=== PATIENT | female | born 1945 | race Caucasian/White ===

== ENCOUNTER 2017-02-10 05:55 | Emergency (ER) | payer MEDICARE, MEDICAID ==
[~2017-02-10 05:55] MED LIST: CALCIUM 600 +1 EAC3 PO; CELEBREX DPS200 MG PO; CIPRO DPS500 MG PO; CLARITIN DPS10 MG PO; EUCERIN CREME120 GM TP; FEOSOL-DPS325 MG PO; IMODIUM DPS2 MG PO; LIPITOR DPS20 MG PO; LOMOTIL-DPS1 TAB PO; NEURONTIN DPS300 MG PO; PRILOSEC DPS20 MG PO; PROAIR HFA8.5 GM IH; SINGULAIR10 MG PO; SYNTHROID75 MCG PO; THERA1 EACH PO; TYLENOL #3 DPS1 TAB PO; TYLENOL EXTRA500 M1 PO; VESICARE10 MG PO
--- NOTE | 2017-02-13 00:35 | ER ---
ADMIT: 02/10/2017 RM/LOC: ER [facility] MR#: [id number] [address] [id number] [place] [address] Emergency Room Report SEX: F AGE: 71 : 1945 DATE: 02/10/2017 HISTORY OF PRESENT ILLNESS: The patient is a 71-year-old female with a past medical history of DJD, diabetes, adrenal neoplasm, migraine, COPD, and hypothyroidism, who came to the ER with chief complaint of ground level fall. Allegedly, the patient states that she had chronic low back pain for years and also has DJD and she got recently the right knee steroid injection and this morning at 4:30 a.m., she was going to the bathroom with a walker when the knees gave away and she fell, the patient denies any head trauma, loss of conscious, the incident was witnessed. The patient states that after the incident the personal do not let her move around or stand up or walk. The patient denies any pain in the hip, knees, chest, abdomen, or pelvis, and complains of chronic low back pain, which has not changed in quality and quantity. The patient states she has had low back pain for more than 20 years. PHYSICAL EXAMINATION: VITAL SIGNS: In the ER, the patient was in no pain or distress as long as she was lying on the bed, blood pressure was 144/77, heart rate was 68, respiratory rate of 18, and temperature was 97.7. GENERAL: The patient was, alert, oriented to person, place, and time. There are no signs of trauma in the head and neck. Spine has no midline tenderness or step-offs. No raccoon eyes. No hemotympanum and no Morales sign. Pupils are 3 mm, reactive to light bilaterally. Normal extraocular movement. Motor and sensory and reflexes are grossly normal. CHEST: Clear bilaterally. HEART: Normal S1, S2 without any murmurs or gallops. ABDOMEN: Soft. There is no midline tenderness in the back, and the patient had no CVA tenderness too. Pelvic x-ray was negative for any fracture or dislocations. The patient's range of motion of all the extremities were also normal. Pelvic was also stable. The patient ambulated with a walker and was at her baseline. The patient is stable to be discharged back to the nursing care facility with chief complaint of ground level fall, chronic low back pain. Apolinar Serrano MD/ david JOB #: [id number] CC: Apolinar Serrano MD, Attending Physician Anne Marroquin MD, Family Physician
== END 2017-02-10 07:15 | disposition home or self-care (01) ==
LOC: ER 05:55
DX: G89.29 Other chronic pain (principal); M54.5 Low back pain; I10 Essential (primary) hypertension; J44.9 Chronic obstructive pulmonary disease, unspecified; E03.9 Hypothyroidism, unspecified; Z88.1 Allergy status to other antibiotic agents; Z88.8 Allergy status to other drugs, medicaments and biological substances; Z91.011 Allergy to milk products; Z79.899 Other long term (current) drug therapy; E11.9 Type 2 diabetes mellitus without complications